=== PATIENT | female | born 1955 | race Caucasian/White ===

== ENCOUNTER → 2017-08-14 | Outpatient (CLI) | payer OTHER, BC ==
[~2017-08-14] MED LIST: GLYBURIDE1.25 MG PO; LISINOPRIL10 MG PO; METFORMIN HCL500 MG PO; SIMVASTATIN20 MG PO
--- NOTE | 2017-08-14 19:34 | Diagnostic Imaging Report ---
EXAMINATION: MRI of the brain without contrast. HISTORY: Weakness COMPARISON: Head CT on 01/06/2017 TECHNIQUE: Sagittal T2; axial DWI, T2, FLAIR, T1-IR, T2 gradient echo; coronal FLAIR. IMAGE QUALITY: Adequate. FINDINGS: Parenchyma: 1. Minimal periventricular white matter T2 hyperintensities, most likely age related chronic microvascular ischemic changes 2. No mass, hemorrhage, acute or chronic infarcts. Skull: Unremarkable. Vessels: Expected flow voids present in the major arteries and dural sinuses. Extra-axial spaces: No abnormal signal intensity or mass effect. Brain volume: Within normal limits for age. Ventricles: No hydrocephalus or displacement. Foramen magnum: Unremarkable. Sella: Unremarkable. Paranasal / mastoid sinuses: Nonspecific opacification of the right mastoid air cells and middle ear. IMPRESSION: 1. No acute or chronic infarct. 2. Mild chronic microvascular ischemic changes. 3. Nonspecific opacification of the right mastoid air cells and middle, likely effusion. Signed by: Dr. Miryam Fletcher M.D. on 08/14/2017 7:30 PM
== END ==
LOC: MRI 16:18
PROVIDERS: ATTEND Specialist
DX: R53.1 Weakness (principal)
CPT/HCPCS: 70551

== ENCOUNTER → 2017-10-01 | Outpatient (CLI) | payer BC ==
--- NOTE | 2017-10-02 12:08 | Diagnostic Imaging Report ---
History: Back pain Comparison studies: None Technique: Sagittal T1, T2 and IR, axial T2 with and without fat sat and axial spin density oblique Intravenous contrast: None Findings: Number of lumbar vertebral bodies: 5. Alignment: Left mid lumbar curvature is centered at L3-4. Normal lordosis. No scoliosis Soft tissues:Subcentimeter T2 hyperintense foci in the kidneys probably incidental cysts. Paraspinal muscles: Moderate fatty infiltrated. Moderately atrophic left iliopsoas muscles. Lower thoracic cord: Normal in size and signal. The tip of the conus is at the inferior L2 level. Cauda equina:No masses. No arachnoiditis . Vertebrae: Incidental T1 hyperintense hemangioma along the superior endplate of L3 on the left. No fractures, infection or neoplasm. Degenerative changes: L1-L2 Early degenerated disc. Mild bilateral facet arthrosis. Patent spinal canal or foramina. No disc herniation L2-L3: Early degenerative disc. Patent spinal canal and foramina. No disc herniation. L3-L4: Moderately degenerated disc, worse on the right due to the curvature. Moderate spinal canal stenosis and severe right foraminal stenosis is due to an asymmetric disc bulge, endplate osteophytes and facet arthrosis. No significant left foraminal stenosis. No disc herniation. L4-L5: Moderately degenerated disc, worse on the left due to the curvature, are associated with Modic type I changes along the endplates on the left. Severe spinal canal stenosis, moderate stenosis of the L5 lateral recesses and severe stenosis of the left foramen is due to a disc bulge, endplate osteophytes, buckled ligamenta flava and facet arthrosis with subtle synovitis on the left. No disc herniation L5-S1: Early degenerated disc. Moderate left foraminal stenosis is due to an asymmetric disc bulge and facet arthrosis. Patent spinal canal. Patent right foramen in spite of right facet arthrosis. No disc herniation Partially visualized sacrum: None . IMPRESSION: 1. Left curvature centered at L3-4 is associated with degenerative changes in the discs on the right at L3-4 and at L4-5 on the left. 2. Degenerative spinal canal stenosis, moderate at L3-4, severe at L4-5 and degenerative foraminal stenosis, severe right at L3-4 and severe left at L4-5 are related to the curvature, disc bulges and facet arthrosis. Superimposed moderate atrophy of the iliopsoas muscles is present. 3. Additional moderate left foraminal stenosis at L5-S1. 4. No disc herniations. Signed by: Dr. Matt Sosa M.D. on 10/02/2017 3:48 PM
== END ==
LOC: MRI 16:10
PROVIDERS: ATTEND Family Medicine
DX: M54.5 Low back pain (principal); M53.86 Other specified dorsopathies, lumbar region; R29.898 Other symptoms and signs involving the musculoskeletal system
CPT/HCPCS: 72148

== ENCOUNTER → 2018-07-30 | Outpatient (CLI) | payer MEDICARE ==
--- NOTE | 2018-07-31 08:18 | Diagnostic Imaging Report ---
History: Hand weakness Comparison studies: None Technique: Sagittal and axial T1 and T2 and sagittal STIR. Intravenous contrast: None Findings: Alignment: Normal lordosis. No scoliosis. Cervicomedullary junction: No abnormalities. Patent foramen magnum. Soft tissues: No T2 hyperintense inflammatory changes. Spinal cord: Focal increased T2 signal in the cord from C4-C5 through C5-C6 due to severe degenerative canal stenosis with cord compression at these levels as described below. Vertebrae: No fractures, infection or neoplasm. Degenerative changes: C2-C3: Mildly degenerated disc. Disc osteophyte complex and thickened ligamentum flavum do not result significant canal stenosis. Patent foramina. C3-C4: Moderately degenerated disc. Minimal retrolisthesis of C3 on C4 with disc osteophyte complex, thickened ligamentum flavum, uncovertebral arthrosis and moderate bilateral facet arthrosis with moderate to severe canal stenosis and bilateral foraminal stenosis. C4-C5: Moderately degenerated disc. Disc osteophyte complex with central disc protrusion thickened ligamentum flavum, severe left facet arthrosis and uncovertebral arthrosis with severe canal stenosis and cord compression and moderate bilateral foraminal stenosis. C5-C6: Moderately degenerated disc. Approximately 6 mm anterolisthesis of C5 on C6 with associated uncovered disc/disc bulge, thickened ligamentum flavum and severe left facet arthrosis and uncovertebral arthrosis with severe canal stenosis and cord compression, severe left foraminal stenosis and moderate right foraminal stenosis. C6-C7: Moderately degenerated disc. Disc osteophyte complex asymmetric to the right, thickened ligamentum flavum and uncovertebral arthrosis with moderate stenosis of the right [place] with flattening of the cord and severe right and moderate left foraminal stenosis. C7-T1: Moderately degenerated disc. Minimal retrolisthesis of C7 on T1 with disc osteophyte complex, thickened ligamentum flavum, uncovertebral arthrosis and facet arthrosis with mild canal stenosis and severe right and moderate left foraminal stenosis. Incidental findings: Nonspecific reactive T2 hyperintense changes in the bilateral mastoids. Bilateral T2 hyperintense thyroid nodules which measure up to 9 mm on the right and 5 mm on the left. IMPRESSION: 1. Severe degenerative canal stenosis at C4-C5 and C5-C6 with associated cord signal changes and myelomalacia. Findings could be correlated for superimposed acute on chronic compressive myelopathy symptoms. 2. Moderate to severe degenerative canal stenosis at C3-C4 and moderate canal stenosis on the right at C6-C7 without associated cord signal abnormalities. 3. Additional degenerative changes include: moderately degenerated disks and varying degrees of moderate to severe degenerative foraminal stenosis from C3 to T1 and multilevel facet arthrosis. Signed by: Dr. James [place] M.D. on 07/31/2018 8:14 AM
== END ==
LOC: MRI 15:25
PROVIDERS: ATTEND Student in an Organized Health Care Education/Training Program
DX: R29.898 Other symptoms and signs involving the musculoskeletal system (principal); R20.0 Anesthesia of skin
CPT/HCPCS: 72141